=== PATIENT | male | born 1990 | race Two or more races ===

== ENCOUNTER 2024-11-21 14:34 | Emergency (ER) | payer OTHER, SELFPAY ==
[2024-11-21 14:37] VITALS: BP 146/88; PULSE 89; RESP 16; TEMP 36.4; O2SAT 97; BMI 32.9
--- NOTE | 2024-11-21 14:42 | ED_ITS ---
HPI - Abdominal Pain General Chief Complaint: Abdominal Pain Stated Complaint: left rib desai/ tingly feeling Time Seen by Provider: 11/21/24 17:47 History of Present Illness ED Provider: Irene NICE narrative: The patient is a 34-year-old male who says that he has been having problems with intermittent left upper abdominal pain for several months. He says this is related to eating. He says that when he eats large meals he gets discomfort that lasts for several minutes. These episodes are not associated with any significant nausea or vomiting. He says that he also frequently feels very gassy. Today he had an episode where he felt he needed to burp and then he felt he almost vomited when he felt the need to burp. He and his partner became very concerned and brought him to the emergency room for evaluation. He has had no fever, sweats, chills. He has no history of abdominal surgeries. He says that when he urinates he feels that his urine is very bubbly and he is concerned about that also. Related Data Previous Rx's ?Medication ?Instructions ?Recorded omeprazole 40 mg capsule,delayed 40 mg PO DAILY #30 ca ps 11/21/24 release simethicone 180 mg capsule (Gas 180 mg PO BID PRN abdo stephany 11/21/24 Relief (simethicone)) distention #30 caps Allergies Allergy/AdvReac Type Severity Reaction Status Date / Time No Known Allergies Allergy Verified 11/21/24 14:40 Review of Systems Review of Systems Yes all other systems are reviewed and are negative [facility] Social History Social History Advance Directives: No Advance Directives Information Provided: No Do you have a plan to hurt others: No Plan Physical Exam ED Vital Signs: Vital Signs - 24 hr 11/21/24 14:37 11/21/24 16:38 Temperature 97.6 F 98.2 F Pulse Rate 89 68 Respiratory Rate 16 19 Blood Pressure 146/88 H 135/83 Pulse Oximetry 97 97 Oxygen Delivery Method Room Air Room Air BMI result Body Mass Index 32.9 Const Other: The patient is a 34-year-old who looks as though he is ordinarily in good health. He had does not appear acutely ill. Orientation/consciousness: patient oriented x3 HENMT Other: The face is symmetrical. ?Mucous membranes moist. Eyes Other: Pupils are round equal, conjunctivae are clear, extraocular movements intact Neck Neck: Yes normal visual inspection, Yes full ROM and Yes no lymphadenopathy Resp Effort & Inspection: normal respiratory effort Auscultation: clear to auscultation bilaterally Cardio Rate: regular rate Rhythm: regular rhythm Heart sounds: S1 normal heart sound present and S2 normal heart sound present GI Other: Abdomen is soft and nontender. No right upper quadrant tenderness. Skin Other: Skin is dry and unremarkable Neuro General: patient oriented x3, gait normal, tone normal, moves all extremities, no focal motor deficits and CN's II-XI intact bilaterally Extrem Other: There is no calf swelling or tenderness. No asymmetry. No peripheral edema. 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 Defer additional HPI, ROS, PE to primary provider. 34-year-old male with no known medical history here with complaints of left upper quadrant abdominal pain for several months. Will obtain labs. VSS Medical Decision Making Medical Decision Making MDM Narrative: The patient is a 34-year-old male. He looks as if he is ordinarily healthy. He presents because of intermittent episodes of abdominal pain that seemed to be related to eating over the last several months. It seems as though the episodes of pain are fairly brief, less than 10 minutes. This does not sound like a history highly suspicious for episodes of biliary colic. I think gastritis is probably more likely. He also describes episodes of feeling bloated and he thinks that he has a lot of problems with gas. His labs and urine are all quite unremarkable. His physical exam is quite unremarkable and he has no abdominal tenderness. I think he may be discharged with a prescription for omeprazole and simethicone. Lab Data 11/21/24 15:15 11/21/24 15:15 Labs: Lab Results 11/21/24 11/21/24 Range/Units 15:15 18:09 WBC 5.3 (4.8-10.8) X10*3/uL RBC 5.81 H (4.60-5.80) X10*6/uL Hgb 17.2 (14.0-18.0) g/dl Hct 50.1 (42.0-52.0) % MCV 86.2 (80.0-98.0) fL MCH 29.6 (27.0-33.0) pg MCHC 34.3 (31.0-36.0) g/dl RDW 12.3 (11.0-16.0) % Plt Count 205 (160-400) X10*3/uL MPV 9.1 L (9.4-12.4) fL Immature Gran % (Auto) 0.4 (0.0-0.4) % Neut % (Auto) 54.8 (45-73) % Lymph % (Auto) 32.1 (20-40) % [place] % (Auto) 11.0 (2-11) % Eos % (Auto) 1.1 (0-4) % Baso % (Auto) 0.6 (0-2) % Lymph # (Auto) 1.7 (1.2-4.9) X10*3/uL [place] # (Auto) 0.6 (0.1-1.2) X10*3/uL Eos # (Auto) 0.1 (0.0-0.4) X10*3/uL Baso # (Auto) 0.0 (0.0-0.2) X10*3/uL Abs Immat Gran (auto) 0.02 (0.00-0.03) X10*3/uL Absolute Neuts (auto) 2.9 (2.0-8.3) x10*3/uL Absolute Nucleated RBC 0.000 (0.0-0.012) X10*3/uL Nucleated RBC % (auto) 0.0 (0.0-0.2) /100WBC Sodium 143 (135-145) mmol/L Potassium 3.9 (3.3-5.1) mmol/L Chloride 108 (96-108) mmol/L Carbon Dioxide 26 (22-29) mmol/L Anion Gap 13 (12-20) BUN 15 (9-16) mg/dL Creatinine 1.03 (0.5-1.4) mg/dL Estim Creat Clear Calc 110.0 Estimated GFR > 60 Random Glucose 99 (60-115) mg/dL Calcium 9.5 (8.4-10.2) mg/dL Total Bilirubin 0.8 (0.0-1.0) mg/dL Direct Bilirubin 0.2 (0.0-0.5) mg/dL AST 31 (5-37) U/L ALT 42 H (0-40) U/L Alkaline Phosphatase 40 (39-117) U/L Total Protein 8.0 (6.5-8.0) g/dL Albumin 4.8 (3.5-5.0) g/dL Lipase 26 (8-78) U/L Urine Color Yellow Urine Appearance Clear Urine pH 6.5 (5.0-9.0) Ur Specific [place] 1.025 (1.005-1.025) Urine Protein Negative (Neg-Trace) mg/dL Urine Glucose (UA) Negative (Negative) mg/dL Urine Ketones Negative (Negative) mg/dL Urine Blood Negative (Negative) Urine Nitrite Negative (Negative) Ur Leukocyte Esterase Negative (Negative) Discharge Plan Discharge Clinical Impression: Upper abdominal pain Patient Disposition: Home, Self-Care Instructions: Gastritis (ED) Additional Instructions: Your testing today is very reassuring. I think the symptoms you are experiencing a promptly related to a stomach acid problem. I think he may have a condition that we called ?gastritis. ? Gastritis can be unpleasant but it is not dangerous. I have sent a prescription for medication called omeprazole that you may take daily. I would take this daily and see if this helps with the symptoms you has been experiencing. I have also sent a prescription for a medication called simethicone which you may take for symptoms of distention or feelings of a lot of gas. You may use this medication on an as-needed basis. Please continue your efforts to get a primary care doctor at the [facility]. Return to the emergency room if significantly worse. Prescriptions: New omeprazole 40 mg capsule,delayed release(DR/EC) 40 mg PO DAILY Qty: 30 1RF simethicone [Gas Relief (simethicone)] 180 mg capsule 180 mg PO BID PRN (Reason: abdominal distention) Qty: 30 0RF Referrals: [facility] [Provider Group] Print Language: Estonian
[2024-11-21 15:18] LABS: MANUAL DIFF FLAG NO
[2024-11-21 15:20] LABS: Hematocrit 50.1 % (42.0-52.0); Hemoglobin 17.2 g/dl (14.0-18.0); Imm Gran Abs Auto 0.02 X10*3/uL (0.00-0.03); Imm Gran Pct Auto 0.4 % (0.0-0.4); Lymphocytes Absolute Auto 1.7 X10*3/uL (1.2-4.9); Mean Corpuscular HGB Conc 34.3 g/dl (31.0-36.0); Mean Corpuscular Hemoglobin 29.6 pg (27.0-33.0); Mean Corpuscular Volume 86.2 fL (80.0-98.0); NRBC Abs Auto 0.000 X10*3/uL (0.0-0.012); NRBC Pct Auto 0.0 /100WBC (0.0-0.2); Platelet Count 205 X10*3/uL (160-400); Red Blood Count 5.81 X10*6/uL (4.60-5.80); White Blood Count 5.3 X10*3/uL (4.8-10.8)
[2024-11-21 15:35] LABS: Alanine Aminotransferase 42 U/L (0-40); Albumin Level 4.8 g/dL (3.5-5.0); Alkaline Phosphatase 40 U/L (39-117); Anion Gap 13 (12-20); Aspartate Amino Transferase 31 U/L (5-37); Blood Urea Nitrogen 15 mg/dL (9-16); Calcium 9.5 mg/dL (8.4-10.2); Carbon Dioxide 26 mmol/L (22-29); Chloride 108 mmol/L (96-108); Creatinine Clr Calc Pharmacy 110.0; Estimated Glomerular Filt Rate > 60; Lipase 26 U/L (8-78); Potassium 3.9 mmol/L (3.3-5.1); Sodium 143 mmol/L (135-145); Total Protein 8.0 g/dL (6.5-8.0)
[2024-11-21 16:38] VITALS: BP 135/83; PULSE 68; RESP 19; TEMP 36.8; O2SAT 97
[2024-11-21 18:16] LABS: Appearance Urine Clear; Glucose Urine UA Negative (Negative); PH 6.5 (5.0-9.0); Specific Gravity - Urine 1.025 (1.005-1.025)
[2024-11-21 18:28] VITALS: BP 135/83; PULSE 68; RESP 19; TEMP 36.8; O2SAT 97
== END 2024-11-21 18:31 | disposition home or self-care (01) ==
PROVIDERS: Nurse Practitioner Family; Emergency Provider Emergency Medicine
DX: R10.12 Left upper quadrant pain (principal); R10.2 Pelvic and perineal pain; R11.2 Nausea with vomiting, unspecified
CPT/HCPCS: 36415; 80048; 80076; 81003; 83690; 85025; 99283

== ENCOUNTER 2025-01-23 15:19 | Emergency (ER) | payer OTHER, SELFPAY ==
--- NOTE | ~2025-01-23 | XR_ITS ---
CLINICAL HISTORY: pain 1 view abdomen Comparison: None provided Findings: No pneumoperitoneum or pneumatosis. No abnormal calcifications. No acute fractures. IMPRESSION: The bowel gas pattern is within normal limits This document has been electronically signed by: Fer Juarez MD, PHD on 01/23/2025 23:13:46
[2025-01-23 15:57] VITALS: BP 180/85; PULSE 72; RESP 18; TEMP 36.6; O2SAT 97
--- NOTE | 2025-01-23 15:58 | ED.GENADULT ---
HPI - General Adult General Chief complaint: Abdominal Pain Stated complaint: abd pain Time Seen by Provider: 01/23/25 21:29 Source: patient Limitations: no limitations History of Present Illness ED Provider: Rosemarie Mcduffie PA-C HPI narrative: 34-year-old male presents with epigastric pain for months. Patient was seen in November, given omeprazole, did not have relief of symptoms. He has yet to follow up with primary care. Pain remains in upper abdomen is nonradiating, described as burning sensation. Associated abdominal bloating with the excessive gas at times. Denies nausea vomiting diarrhea. No fever. No change in symptoms. Denies constipation. Related Data Previous Rx's ?Medication ?Instructions ?Recorded omeprazole 40 mg capsule,delayed 40 mg PO DAILY #30 caps 11/21/24 release simethicone 180 mg capsule (Gas 180 mg PO BID PRN abdominal 11/21/24 Relief (simethicone)) distention #30 caps sucralfate 1 gram tablet (Carafate) 1 g PO BID PRN indigestion #14 tabs 01/23/25 Allergies Allergy/AdvReac Type Severity Reaction Status Date / Time No Known Allergies Allergy Verified 01/23/25 16:02 [facility] Social History Social History Advance Directives: No Advance Directives Information Provided: No Physical Exam ED Vital Signs: Vital Signs - 24 hr 01/23/25 15:57 Temperature 97.8 F Pulse Rate 72 Respiratory Rate 18 Blood Pressure 180/85 H Pulse Oximetry 97 Oxygen Delivery Method Room Air BMI result Body Mass Index 30.0 Course Course Course Narrative: This is a rapid medical exam performed by Susana Harrington NP: Additional HPI, ROS, PE not included below will be deferred to primary provider. Patient is a 34y/o Faroese speaking M presenting to the ED with complaint of abdominal pain for months. Seen here in November for same, started on omeprazole without change. Plan: Labs Medications Administered Discontinued Medications Generic Name Dose Route Start Last Admin Trade Name Freq PRN Reason Stop Dose Admin Sucralfate 1 gm 01/23/25 21:49 01/23/25 22:29 Sucralfate Oral Suspension 1 Gm/10 Ml Oral.Susp PO 01/23/25 21:50 1 gm ONCE ONE Administration Medical Decision Making Medical Decision Making [facility] Narrative: 34-year-old male presents with epigastric pain for months. Patient was seen in November, given omeprazole, did not have relief of symptoms. He has yet to follow up with primary care. Pain remains in upper abdomen is nonradiating, described as burning sensation. Associated abdominal bloating with the excessive gas at times. Denies nausea vomiting diarrhea. No fever. No change in symptoms. Denies constipation. Problem: Chronic epigastric pain History: Per patient I have considered the following differential diagnoses: Biliary colic, cholecystitis, GERD/gastritis, pancreatitis Plan: Patient here with ongoing epigastric discomfort described as burning, he likely has poorly controlled acid reflux. I have advised he needs to follow up with primary care, he is to see a fabrication mig welder. He understands, he states he is having barriers with his insurance, that he is currently on a waiting list to get in for his 1st physical. Screening labs already obtained from triage. His vitals are stable, labs unremarkable, no change in symptoms. He does not warrant advanced imaging. I had inquired about constipation, he denies, obtaining a screening KUB, as this is a common cause for exacerbation of GERD symptoms. We will be trialing Carafate. Do not feel this is biliary colic or cholecystitis, he does not have focal right upper quadrant pain he is not having postprandial symptoms, no nausea vomiting. Likewise, not pancreatitis, lipase negative, he has had symptoms for months, and there was no focal left upper quadrant abdominal pain. I have independently reviewed the following tests: Labs: No leukocytosis, not anemic, no electrolyte abnormality, LFTs normal lipase negative KUB:Findings: No pneumoperitoneum or pneumatosis. No abnormal calcifications. No acute fractures. IMPRESSION: The bowel gas pattern is within normal limits Differential Diagnosis Differential Diagnoses: The differential diagnosis associated with the presentation includes See medical decision-making Admission/Observation Consideration of admission/observation: Escalation of care including admission/observation considered Not applicable Lab Data MDM Lab Attestation statement: I reviewed the patient's lab results. 01/23/25 16:21 01/23/25 16:21 Labs: Lab Results 01/23/25 Range/Units 16:21 WBC 6.4 (4.8-10.8) X10*3/uL RBC 5.51 (4.60-5.80) X10*6/uL Hgb 16.4 (14.0-18.0) g/dl Hct 48.5 (42.0-52.0) % MCV 88.0 (80.0-98.0) fL MCH 29.8 (27.0-33.0) pg MCHC 33.8 (31.0-36.0) g/dl RDW 12.7 (11.0-16.0) % Plt Count 211 (160-400) X10*3/uL MPV 9.5 (9.4-12.4) fL Immature Gran % (Auto) 0.5 H (0.0-0.4) % Neut % (Auto) 58.0 (45-73) % Lymph % (Auto) 28.4 (20-40) % [place] % (Auto) 11.2 H (2-11) % Eos % (Auto) 1.1 (0-4) % Baso % (Auto) 0.8 (0-2) % Lymph # (Auto) 1.8 (1.2-4.9) X10*3/uL [place] # (Auto) 0.7 (0.1-1.2) X10*3/uL Eos # (Auto) 0.1 (0.0-0.4) X10*3/uL Baso # (Auto) 0.1 (0.0-0.2) X10*3/uL Abs Immat Gran (auto) 0.03 (0.00-0.03) X10*3/uL Absolute Neuts (auto) 3.7 (2.0-8.3) x10*3/uL Absolute Nucleated RBC 0.000 (0.0-0.012) X10*3/uL Nucleated RBC % (auto) 0.0 (0.0-0.2) /100WBC Sodium 142 (135-145) mmol/L Potassium 3.7 (3.3-5.1) mmol/L Chloride 106 (96-108) mmol/L Carbon Dioxide 28 (22-29) mmol/L Anion Gap 12 (12-20) BUN 14 (9-16) mg/dL Creatinine 1.06 (0.5-1.4) mg/dL Estim Creat Clear Calc 109.1 Estimated GFR > 60 Random Glucose 96 (60-115) mg/dL Calcium 9.5 (8.4-10.2) mg/dL Total Bilirubin 0.6 (0.0-1.0) mg/dL AST 33 (5-37) U/L ALT 60 H (0-40) U/L Alkaline Phosphatase 43 (39-117) U/L Total Protein 7.7 (6.5-8.0) g/dL Albumin 4.6 (3.5-5.0) g/dL Lipase 28 (8-78) U/L Radiology Impression Discussion of test interpretation with radiology: I have reviewed the radiologist's reading. Discharge Plan Discharge Clinical Impression: Chronic epigastric pain, Chronic GERD Patient Disposition: Home, Self-Care Instructions: GERD (Gastroesophageal Reflux Disease) (ED), Epigastric Pain (ED) Additional Instructions: All of your screening labs were completely normal. There were no acute findings on the x-ray of the abdomen. Your symptoms are consistent with a poorly controlled acid reflux or GERD. See home care instructions. There are many habits to avoid, many foods that are triggers for this condition. Do not eat 3 hours before bed. Eating smaller more frequent meals throughout the day instead of 3 large meals. Avoid fatty greasy food, acidic food, spicy food, anything carbonated, alcohol or caffeine. These foods are known to be triggers for acid reflux. Use the Carafate as needed for upper abdominal discomfort. You need to establish primary care to be referred to a fabrication mig welder. Prescriptions: New sucralfate [Carafate] 1 gram tablet 1 g PO BID PRN (Reason: indigestion) Qty: 14 0RF No Action omeprazole 40 mg capsule,delayed release(DR/EC) 40 mg PO DAILY Qty: 30 1RF simethicone [Gas Relief (simethicone)] 180 mg capsule 180 mg PO BID PRN (Reason: abdominal distention) Qty: 30 0RF Stand Alone Forms: Work/School Release Print Language: Faroese
[2025-01-23 16:28] LABS: MANUAL DIFF FLAG NO
[2025-01-23 16:31] LABS: Hematocrit 48.5 % (42.0-52.0); Hemoglobin 16.4 g/dl (14.0-18.0); Imm Gran Abs Auto 0.03 X10*3/uL (0.00-0.03); Imm Gran Pct Auto 0.5 % (0.0-0.4); Lymphocytes Absolute Auto 1.8 X10*3/uL (1.2-4.9); Mean Corpuscular HGB Conc 33.8 g/dl (31.0-36.0); Mean Corpuscular Hemoglobin 29.8 pg (27.0-33.0); Mean Corpuscular Volume 88.0 fL (80.0-98.0); NRBC Abs Auto 0.000 X10*3/uL (0.0-0.012); NRBC Pct Auto 0.0 /100WBC (0.0-0.2); Platelet Count 211 X10*3/uL (160-400); Red Blood Count 5.51 X10*6/uL (4.60-5.80); White Blood Count 6.4 X10*3/uL (4.8-10.8)
[2025-01-23 16:52] LABS: Alanine Aminotransferase 60 U/L (0-40); Albumin Level 4.6 g/dL (3.5-5.0); Alkaline Phosphatase 43 U/L (39-117); Anion Gap 12 (12-20); Aspartate Amino Transferase 33 U/L (5-37); Blood Urea Nitrogen 14 mg/dL (9-16); Calcium 9.5 mg/dL (8.4-10.2); Carbon Dioxide 28 mmol/L (22-29); Chloride 106 mmol/L (96-108); Creatinine Clr Calc Pharmacy 109.1; Estimated Glomerular Filt Rate > 60; Lipase 28 U/L (8-78); Potassium 3.7 mmol/L (3.3-5.1); Sodium 142 mmol/L (135-145); Total Protein 7.7 g/dL (6.5-8.0)
[2025-01-23] MEDS: Sucralfate Oral Suspension 1 GM/10 ML ORAL.SUSP PO (22:29)
[2025-01-24 00:28] VITALS: BP 164/86; PULSE 64; RESP 18; TEMP 36.6; O2SAT 97
== END 2025-01-24 00:31 | disposition home or self-care (01) ==
PROVIDERS: Registered Nurse Emergency; Emergency Provider Emergency Medicine
DX: K21.9 Gastro-esophageal reflux disease without esophagitis (principal); R10.13 Epigastric pain; R10.2 Pelvic and perineal pain
CPT/HCPCS: 36415; 74018; 80053; 83690; 85025; 99282; 99283

== ENCOUNTER → 2025-01-23 21:49 | Outpatient (BNV) | payer OTHER, SELFPAY | PROVIDERS: Emergency Provider Emergency Medicine; Visit Provider General Practice | DX: R10.10 Upper abdominal pain, unspecified (principal) | CPT/HCPCS: 74018 ==